=== PATIENT | female | born 1995 | race Caucasian/White ===

== ENCOUNTER 2024-01-20 05:52 | Emergency (ER) | payer OTHER ==
--- NOTE | 2024-01-20 06:09 | ED Physician Documentation ---
PD HPI OPHTHO - Stated complaint Stated Complaint: HYDRAULIC FLUID IN EYES - Chief complaint Chief Complaint: Heent - History obtained from History obtained from: Patient - Additional information Additional information: 28-year-old female with no significant history presents by EMS from the [facility] for hydrolic fuel exposure. 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 Immediately flushed eye for 15 minutes at eye station. Transferred for medical evaluation. Patient states she feels better. Does not wear contacts. Minimal irritation currently at inner left eye, no other complaints. No blurred vision. Review of Systems Constitutional: denies: Fever, Chills Eyes: reports: Irritation. denies: Loss of vision, Decreased vision, Photophobia, Discharge Throat: denies: Dental pain / toothache, Oral lesions / sores, Sore throat PD PAST MEDICAL HISTORY - Past Medical History Past Medical History: No - Past Surgical History Past Surgical History: No - Present Medications Home Medications: Ambulatory Orders Medication Instructions Recorded Confirmed No Known Home Medications 01/20/24 01/20/24 - Allergies Allergies/Adverse Reactions: Allergies Allergy/AdvReac Type Severity Reaction Status Date / Time No Known Drug Allergies Allergy Verified 01/20/24 05:57 - Social History Does the pt smoke?: No Smoking Status: Never smoker - Immunizations Immunizations are current?: Yes PD ED PE NORMAL - Vitals Vital signs reviewed: Yes - General General: Alert and oriented X 3, No acute distress, Well developed/nourished - HEENT HEENT: Atraumatic, PERRL, EOMI, Ears normal, Moist mucous membranes - Neck Neck: Supple, no meningeal sign - Respiratory Respiratory: No respiratory distress - Derm Derm: Normal color, Warm and dry, No rash - Neuro Neuro: Alert and oriented X 3, teaching associate 2-12 intact, No motor deficit, Normal speech Results - Vitals Vitals: Oxygen O2 Source Room air PD Medical Decision Making - ED course Complexity details: reviewed results, re-evaluated patient, considered differential, d/w patient ED course: Patient presenting for evaluation after hydraulic fluid exposure. Patient already washed eyes out for 15 minutes at [facility] prior to arrival. States that her vision is at her baseline right now. Patient's eye exam unremarkable. No fluorescein uptake, no foreign body seen, no rash or irritation around the eyes or periorbital region. Patient counseled on results, no indication for antibiotic ointment at this time. Departure - Departure Disposition: 01 Home, Self Care Clinical Impression: Exposure to chemical irritant Condition: Stable Instructions: ED Chemical Conjunctivitis Comments: Your eye exam today was normal. Your pH was 7, which is the expected number for the eyeball. I also did not see any scratches or foreign bodies. Since you wash your eyes out so well after the initial exposure you likely prevented any damage from occurring. In the unlikely event that you notice vision changes, eye irritation, or swelling please return for repeat evaluation or follow up with an eye doctor. Otherwise you may continue activity as normal. Forms: PCP List Discharge Date/Time: 01/20/24 06:55
[2024-01-20 06:11] VITALS: BP 133/90; O2SAT 100
== END 2024-01-20 06:55 | disposition home or self-care (01) ==
LOC: ED 05:52
DX: Z77.098 Contact with and (suspected) exposure to other hazardous, chiefly nonmedicinal, chemicals (principal)
CPT/HCPCS: 99283; 99284